=== PATIENT | male | born 1960 | race Asian ===

== ENCOUNTER 2018-09-26 12:33 | Emergency (ER) | payer BC ==
[~2018-09-26] VITALS: Ht 177.8 cm; Wt 77.1 kg
[2018-09-26] VITALS (8 sets, daily range): BP systolic 96–127; BP diastolic 56–80
--- NOTE | 2018-09-26 12:50 | NUR ---
ED Nurse Note: PT WALKED IN TO ER TODAY FROM HOME. AOX4. AT BEDSIDE. PT C/O UPPER RIGHT QUADRANT ABDOMINAL PAIN, 04/05 X 3 DAYS AGO. ABDOMEN IS DISTENDED AND TENDER TO PALPATION IN RIGHT UPPER QUADRANT. HYPOACTIVE BOWEL SOUNDS IN ALL QUADRANTS. PT STATES LAST BM X YESTERDAY WHICH WAS LIQUID. PT ALSO C/O NAUSEA AND VOMITING X YESTERDAY. PT SKIN AND SCLERA JAUNDICED WHICH PT'S STATES SHE NOTICED X YESTERDAY.
[2018-09-26] MEDS ORDERED: Sodium Chloride 500ML 500 ML IV ONE (12:56)
[2018-09-26] MEDS ORDERED: Ipratropium 0.02% Inh Soln 2.5ml UD HHN ONE (13:00)
[2018-09-26] MEDS ORDERED: Isovue-370 150ml vial INJ PRN (13:00)
[2018-09-26] MEDS ORDERED: Albuterol ud Inhalation HHN ONE (13:00)
--- NOTE | 2018-09-26 13:00 | Emergency Room Report ---
History of Present Illness General Chief Complaint: Dyspnea/Respdistress Source: Patient Present Illness HPI Patient presents with complaints of shortness of breath reports onset was earlier today There is a pleuritic component to this Patient reports that he has a history of asthma in the past However has not required medications recently Patient had recent visit to [facility] While there patient developed significant vomiting and diarrhea, that has since resolved, patient had also reported fevers or chills Denies any calf pain or swelling Also reports a fullness sensation in the abdomen Denies any flank pain denies any dysuria frequency denies any drug or alcohol use As the patient's charts of breath has progressively worsened he presents to the ER Upon initial evaluation patient appears tachypneic, jaundice and ill Allergies: Coded Allergies: No Known Allergies (Unverified , 09/26/18) Patient History Past Medical History: see triage record Pertinent Family History: none Reviewed Nursing Documentation: PMH: Agreed; PSxH: Agreed Nursing Documentation-PMH Past Medical History: No Stated History Review of Systems All Other Systems: negative except mentioned in HPI Physical Exam Vital Signs Date Time Temp Pulse Resp B/P (MAP) Pulse Ox O2 Delivery O2 Flow Rate FiO2 09/26/18 12:44 104 20 119/64 93 Room Air Sp02 EP Interpretation: reviewed, normal General Appearance: mild distress - Patient appears short of breath Head: normocephalic, atraumatic Eyes: bilateral eye PERRL, bilateral eye EOMI ENT: hearing grossly normal, normal pharynx, TMs + canals normal, uvula midline Neck: full range of motion, supple, no meningismus, no bony tend Respiratory: no rhonchi, no respiratory distress, no retraction, no accessory muscle use, wheezing - Fine wheezing the right upper lobe mild tachypnea Cardiovascular #1: normal peripheral pulses, no edema, no gallop, no JVD, no murmur, tachycardia Gastrointestinal: normal bowel sounds, non tender, soft, no mass, no organomegaly, non-distended, no guarding, no hernia, no pulsatile mass, no rebound Genitourinary: no CVA tenderness Musculoskeletal: normal inspection Neurologic: oriented x3, 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, 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, motor strength/ tone normal, sensory intact Psychiatric: mood/affect normal Skin: normal color, no rash, warm/dry, palpation normal Lymphatic: normal inspection, no adenopathy Procedures Critical Care Time Critical Care Time 70 minutes for multiple re-evaluations Critical presentation and critical findings requiring multiple consultants, not including any procedural time Medical Decision Making Diagnostic Impression: Primary Impression: Hepatorenal failure Additional Impressions: Respiratory distress Pancytopenia Pleural effusion ER Course Multiple differentials are considered including but not limited to vascular, cardiac, cardiopulmonary, infectious pathology patient's blood work is significantly abnormal including pancytopenia Bandemia Patient's kidney function is elevated Total bilirubin elevated CT imaging shows pleural effusions and hepatomegaly patient has received IV hydration appears to be significantly acidotic Patient is also placed on BiPAP Was seen emergently in the emergency room by medicine, heme oncology They do agree that the patient would benefit from higher level of care at [facility] with multispecialty capacity Initially the patient's reported wanting to leave AGAINST MEDICAL ADVICE to drive the patient to [facility] however we were now reported that there is room availability patient will be able to have transfer After this discussion, I was contacted by Dr. Asher who reported that the transfer center had provided information regarding transfer which will likely happen in the next 90 minutes Given this input patient decided to stay until transport is made After 120 minutes there has been no reports of transfer at this time Patient however did do significantly better on BiPAP And at this time pending further transfer To [facility] for further definitive care Labs Test 09/26/18 13:00 09/26/18 14:15 09/26/18 15:25 09/26/18 15:50 White Blood Count 1.6 K/UL (4.8-10.8) 1.9 K/UL (4.8-10.8) Red Blood Count 2.33 M/UL (4.70-6.10) 2.10 M/UL (4.70-6.10) Hemoglobin 7.1 G/DL (14.2-18.0) 6.5 G/DL (14.2-18.0) Hematocrit 20.7 % (42.0-52.0) 19.0 % (42.0-52.0) Mean Corpuscular Volume 89 FL (80-99) 90 FL (80-99) Mean Corpuscular Hemoglobin 30.5 PG (27.0-31.0) 31.0 PG (27.0-31.0) Mean Corpuscular Hemoglobin Concent 34.3 G/DL (32.0-36.0) 34.3 G/DL (32.0-36.0) Red Cell Distribution Width 12.7 % (11.6-14.8) 13.3 % (11.6-14.8) Platelet Count 20 K/UL (150-450) 18 K/UL (150-450) Mean Platelet Volume 14.4 FL (6.5-10.1) 10.6 FL (6.5-10.1) Neutrophils (%) (Auto) % (45.0-75.0) % (45.0-75.0) Lymphocytes (%) (Auto) % (20.0-45.0) % (20.0-45.0) Monocytes (%) (Auto) % (1.0-10.0) % (1.0-10.0) Eosinophils (%) (Auto) % (0.0-3.0) % (0.0-3.0) Basophils (%) (Auto) % (0.0-2.0) % (0.0-2.0) Differential Total Cells Counted 100 100 Neutrophils % (Manual) 70 % (45-75) 73 % (45-75) Lymphocytes % (Manual) 8 % (20-45) 9 % (20-45) Monocytes % (Manual) 10 % (1-10) 8 % (1-10) Eosinophils % (Manual) 0 % (0-3) 2 % (0-3) Basophils % (Manual) 0 % (0-2) 0 % (0-2) Band Neutrophils 12 % (0-8) 8 % (0-8) Platelet Estimate Decreased Decreased Platelet Morphology Normal Normal Hypochromasia 1+ 4+ Sodium Level 124 MMOL/L (136-145) Potassium Level 4.4 MMOL/L (3.5-5.1) Chloride Level 89 MMOL/L (98-107) Carbon Dioxide Level 17 MMOL/L (21-32) Anion Gap 18 mmol/L (5-15) Blood Urea Nitrogen 79 mg/dL (7-18) Creatinine 2.6 MG/DL (0.55-1.30) Estimat Glomerular Filtration Rate 25.5 mL/min (>60) Glucose Level 100 MG/DL (74-106) Calcium Level 8.1 MG/DL (8.5-10.1) Total Bilirubin 9.6 MG/DL (0.2-1.0) Direct Bilirubin 8.6 MG/DL (0.0-0.3) Aspartate Amino Transf (AST/SGOT) 122 U/L (15-37) Alanine Aminotransferase (ALT/SGPT) 134 U/L (12-78) Alkaline Phosphatase 97 U/L (46-116) Total Creatine Kinase 12 U/L (26-308) Creatine Kinase MB 0.5 NG/ML (0.0-3.6) Creatine Kinase MB Relative Index 4.1 Troponin I 0.000 ng/mL (0.000-0.056) Pro-B-Type Natriuretic Peptide 11517 pg/mL (0-125) Total Protein 5.2 G/DL (6.4-8.2) Albumin 1.7 G/DL (3.4-5.0) Globulin 3.5 g/dL Albumin/Globulin Ratio 0.5 (1.0-2.7) Lipase 162 U/L (73-393) Lactic Acid Level 5.00 mmol/L (0.4-2.0) 5.40 mmol/L (0.66-2.22) Arterial Blood pH 7.359 (7.350-7.450) Arterial Blood Partial Pressure CO2 28.3 mmHg (35.0-45.0) Arterial Blood Partial Pressure O2 82.1 mmHg (75.0-100.0) Arterial Blood HCO3 15.6 mmol/L (22.0-26.0) Arterial Blood Oxygen Saturation 93.7 % (95-100) Arterial Blood Base Excess -9.0 (-2-2) Mayank Test Positive Poikilocytosis 2+ Anisocytosis 2+ Spherocytes 1+ [place] Cells 2+ Reticulocyte Count 0.9 % (0.0-2.0) Lactate Dehydrogenase 517 U/L (81-234) Labs Test 09/26/18 13:00 09/26/18 14:15 09/26/18 15:25 09/26/18 15:50 White Blood Count 1.6 K/UL (4.8-10.8) 1.9 K/UL (4.8-10.8) Red Blood Count 2.33 M/UL (4.70-6.10) 2.10 M/UL (4.70-6.10) Hemoglobin 7.1 G/DL (14.2-18.0) 6.5 G/DL (14.2-18.0) Hematocrit 20.7 % (42.0-52.0) 19.0 % (42.0-52.0) Mean Corpuscular Volume 89 FL (80-99) 90 FL (80-99) Mean Corpuscular Hemoglobin 30.5 PG (27.0-31.0) 31.0 PG (27.0-31.0) Mean Corpuscular Hemoglobin Concent 34.3 G/DL (32.0-36.0) 34.3 G/DL (32.0-36.0) Red Cell Distribution Width 12.7 % (11.6-14.8) 13.3 % (11.6-14.8) Platelet Count 20 K/UL (150-450) 18 K/UL (150-450) Mean Platelet Volume 14.4 FL (6.5-10.1) 10.6 FL (6.5-10.1) Neutrophils (%) (Auto) % (45.0-75.0) % (45.0-75.0) Lymphocytes (%) (Auto) % (20.0-45.0) % (20.0-45.0) Monocytes (%) (Auto) % (1.0-10.0) % (1.0-10.0) Eosinophils (%) (Auto) % (0.0-3.0) % (0.0-3.0) Basophils (%) (Auto) % (0.0-2.0) % (0.0-2.0) Differential Total Cells Counted 100 100 Neutrophils % (Manual) 70 % (45-75) 73 % (45-75) Lymphocytes % (Manual) 8 % (20-45) 9 % (20-45) Monocytes % (Manual) 10 % (1-10) 8 % (1-10) Eosinophils % (Manual) 0 % (0-3) 2 % (0-3) Basophils % (Manual) 0 % (0-2) 0 % (0-2) Band Neutrophils 12 % (0-8) 8 % (0-8) Platelet Estimate Decreased Decreased Platelet Morphology Normal Normal Hypochromasia 1+ 4+ Sodium Level 124 MMOL/L (136-145) Potassium Level 4.4 MMOL/L (3.5-5.1) Chloride Level 89 MMOL/L (98-107) Carbon Dioxide Level 17 MMOL/L (21-32) Anion Gap 18 mmol/L (5-15) Blood Urea Nitrogen 79 mg/dL (7-18) Creatinine 2.6 MG/DL (0.55-1.30) Estimat Glomerular Filtration Rate 25.5 mL/min (>60) Glucose Level 100 MG/DL (74-106) Calcium Level 8.1 MG/DL (8.5-10.1) Total Bilirubin 9.6 MG/DL (0.2-1.0) Direct Bilirubin 8.6 MG/DL (0.0-0.3) Aspartate Amino Transf (AST/SGOT) 122 U/L (15-37) Alanine Aminotransferase (ALT/SGPT) 134 U/L (12-78) Alkaline Phosphatase 97 U/L (46-116) Total Creatine Kinase 12 U/L (26-308) Creatine Kinase MB 0.5 NG/ML (0.0-3.6) Creatine Kinase MB Relative Index 4.1 Troponin I 0.000 ng/mL (0.000-0.056) Pro-B-Type Natriuretic Peptide 69047 pg/mL (0-125) Total Protein 5.2 G/DL (6.4-8.2) Albumin 1.7 G/DL (3.4-5.0) Globulin 3.5 g/dL Albumin/Globulin Ratio 0.5 (1.0-2.7) Lipase 162 U/L (73-393) Lactic Acid Level 5.00 mmol/L (0.4-2.0) 5.40 mmol/L (0.66-2.22) Arterial Blood pH 7.359 (7.350-7.450) Arterial Blood Partial Pressure CO2 28.3 mmHg (35.0-45.0) Arterial Blood Partial Pressure O2 82.1 mmHg (75.0-100.0) Arterial Blood HCO3 15.6 mmol/L (22.0-26.0) Arterial Blood Oxygen Saturation 93.7 % (95-100) Arterial Blood Base Excess -9.0 (-2-2) Mayank Test Positive Poikilocytosis 2+ Anisocytosis 2+ Spherocytes 1+ [place] Cells 2+ Reticulocyte Count 0.9 % (0.0-2.0) Lactate Dehydrogenase 517 U/L (81-234) EKG Diagnostic Results Rate: tachycardiac Rhythm: other ST Segments: no acute changes Rhythm Strip Diag. Results EP Interpretation: yes Rate: 112 Rhythm: no PVC's, no ectopy, other - Sinus tach Chest X-Ray Diagnostic Results Chest X-Ray Diagnostic Results : Chest X-Ray Ordered: Yes # of Views/Limited/Complete: 1 View Indication: Chest Pain EP Interpretation: Yes Interpretation: no consolidation, no effusion, no pneumothorax, other - Right perihilar fullness Impression: Other - Right perihilar full nonspecific Electronically Signed by: Chel Morillo DO CT/MRI/US Diagnostic Results CT/MRI/US Diagnostic Results : Impression cT chest abdomen pelvisIMPRESSION: Abnormal right pulmonary hilum described on recent chest radiograph is probably accounted for by prominent vascular structures. Doubt underlying mass or adenopathy, although impossible to completely exclude in the absence of IV contrast Small right and trace left pleural effusions Low-attenuation blood pool suggesting anemia Limited assessment of the GI tract, due to lack of enteric contrast administration No gross acute abdominal or pelvic abnormality Hepatomegaly Other findings as noted, including calcified vasa deferentia, degenerative spondylosis Last Vital Signs Date Time Temp Pulse Resp B/P (MAP) Pulse Ox O2 Delivery O2 Flow Rate FiO2 09/26/18 12:44 104 20 119/64 93 Room Air Status: improved Disposition: XFER SHT-TRM HOSP Condition: Critical Chel Morillo DO Sep 26, 2018 13:00
[2018-09-26 13:32] LABS: HEMATOCRIT 20.7 % (42.0-52.0); HEMOGLOBIN 7.1 G/DL (14.2-18.0); MEAN CORPUSCULAR VOLUME 89 FL (80-99); PLATELET COUNT 20 K/UL (150-450); RED BLOOD COUNT 2.33 M/UL (4.70-6.10); RED CELL DISTRIBUTION WIDTH 12.7 % (11.6-14.8)
[2018-09-26 13:38] LABS: ANION GAP 18 mmol/L (5-15); BLOOD UREA NITROGEN 79 mg/dL (7-18); CALCIUM 8.1 MG/DL (8.5-10.1); CARBON DIOXIDE 17 MMOL/L (21-32); CHLORIDE 89 MMOL/L (98-107); CREATININE 2.6 MG/DL (0.55-1.30); POTASSIUM 4.4 MMOL/L (3.5-5.1); SODIUM 124 MMOL/L (136-145)
--- NOTE | 2018-09-26 13:42 | Diagnostic Imaging Report ---
Indication: Shortness of breath Technique: One view of the chest Comparison: none Findings: The right pulmonary hilum is quite prominent. The heart is borderline enlarged. No infiltrates, effusions, or congestion. There is some central bronchial wall thickening. Impression: Prominent right pulmonary hilum, could this represent prominent vessels but mass or adenopathy not excludable. Consider CT for further evaluation Borderline cardiomegaly
[2018-09-26 13:44] LABS: WHITE BLOOD COUNT 1.6 K/UL (4.8-10.8)
[2018-09-26 13:56] LABS: ALANINE AMINOTRANSFERASE 134 U/L (12-78); ALBUMIN 1.7 G/DL (3.4-5.0); ALBUMIN/GLOBULIN RATIO 0.5 (1.0-2.7); ALKALINE PHOSPHATASE 97 U/L (46-116); ASPARTATE AMINO TRANSFERASE 122 U/L (15-37); BILIRUBIN,TOTAL 9.6 MG/DL (0.2-1.0); CKMB 0.5 NG/ML (0.0-3.6); CREATINE KINASE 12 U/L (26-308)
[2018-09-26 13:58] LABS: BILIRUBIN,DIRECT 8.6 MG/DL (0.0-0.3)
[2018-09-26] MEDS ORDERED: cefTRIAXone 1 GM in NS 55 ML IVPB ONE (14:00)
--- NOTE | 2018-09-26 15:05 | Diagnostic Imaging Report ---
CLINICAL INDICATION:Shortness of breath. Abdominal pain and fevers and chills, fullness sensation in the abdomen, right upper quadrant abdominal pain for 3 days, tender to palpation in the right upper quadrant TECHNIQUE: No oral contrast, per emergency room physician request Spiral acquisitions obtained through the chest, abdomen, and pelvis. Multiplanar reconstructions were generated. Total dose length product 1471.74 mGycm. CTDIvol(s) 17.89,14.43 mGy. Radiation dose was minimized using automated exposure control COMPARISON: None. Reference made to chest radiograph earlier the same day FINDINGS Chest: There is what appears to be prominent venous and arterial structures in the right pulmonary hilum, probably accounting for the right hilar fullness described on recent chest radiograph. However, underlying adenopathy is difficult to completely exclude. Areas of linear scarring are seen in the bilateral lung apices and in the posterior right upper lobe. Scarring and or atelectasis is seen at both lung bases. There is also bronchial wall thickening, particularly in the bilateral lower lobes. There is a small right pleural effusion. There is trace left pleural fluid. No focal consolidation. No definite congestion The heart is upper limits normal in size. Low attenuation of the blood pool suggesting anemia. There is minimal anterior wall pericardial thickening. No mediastinal or hilar mass or adenopathy. The included thyroid appears unremarkable. Some debris is seen within the esophagus. No axillary or chest wall mass or adenopathy. The bones are unremarkable. Abdomen pelvis: Lack of enteric contrast limits assessment of the GI tract. There are colonic diverticula. The appendix is normal. No small bowel distention. No free or loculated intraperitoneal gas or fluid is evident. The stomach and duodenum are unremarkable. Lack of IV contrast limits assessment of the solid organs. The liver is enlarged. No gross focal abnormality. The gallbladder is contracted. No biliary ductal dilatation. The pancreas, spleen, adrenals, kidneys are unremarkable. No renal or ureteral calculi, hydronephrosis, or hydroureter. No pelvic mass or adenopathy. The bladder is unremarkable. The vasa deferentia are calcified The bones are unremarkable except for degenerative spondylosis changes. IMPRESSION: Abnormal right pulmonary hilum described on recent chest radiograph is probably accounted for by prominent vascular structures. Doubt underlying mass or adenopathy, although impossible to completely exclude in the absence of IV contrast Small right and trace left pleural effusions Low-attenuation blood pool suggesting anemia Limited assessment of the GI tract, due to lack of enteric contrast administration No gross acute abdominal or pelvic abnormality Hepatomegaly Other findings as noted, including calcified vasa deferentia, degenerative spondylosis The CT scanner at [facility] is accredited by the [employer] and the scans are performed using protocols designed to limit radiation exposure to as low as reasonably achievable to attain images of sufficient resolution adequate for diagnostic evaluation.
[2018-09-26] MEDS ORDERED: ZALEPLON10 MG ORAL (15:07)
[2018-09-26] MEDS ORDERED: EPLERENONE25 MG PO (15:07)
[2018-09-26] MEDS ORDERED: BENZONATATE200 MG ORAL (15:07)
[2018-09-26] MEDS ORDERED: ACYCLOVIR400 MG ORAL (15:07)
[2018-09-26] MEDS ORDERED: Levalbuterol Inh UD 1.25mg/0.5ml HHN ONE (15:15)
--- NOTE | 2018-09-26 16:00 | NUR ---
ED Nurse Note: LACTIC REFLEX RESENT.
[2018-09-26 16:11] LABS: MEAN CORPUSCULAR VOLUME 90 FL (80-99); PLATELET COUNT 18 K/UL (150-450); RED CELL DISTRIBUTION WIDTH 13.3 % (11.6-14.8)
[2018-09-26 16:14] LABS: HEMOGLOBIN 6.5 G/DL (14.2-18.0); WHITE BLOOD COUNT 1.9 K/UL (4.8-10.8)
[2018-09-26] MEDS ORDERED: D5NS 1,000 ML IV SCH (16:15)
[2018-09-26] MEDS ORDERED: Acetaminophen 500mg (ES) tab ORAL PRN (16:15)
[2018-09-26] MEDS ORDERED: Piperacillin/Tazobactam 3.375 GM in D5W 110 ML IVPB SCH (16:15)
--- NOTE | 2018-09-26 16:26 | NUR ---
ED Nurse Note: RT AT THE BEDSIDE PLACING BIPAP: 08/02, FIO2 35% Addendum: 09/26/18 at 1629 by COLLETTE ED Nurse Note: RT AT THE BEDSIDE PLACING BIPAP: 10/02, FIO2 35%
--- NOTE | 2018-09-26 16:42 | NUR ---
RESPIRATORY NOTE: Placed pt on Bipap 15/5- back up rate 20- 35% FiO2 per MD Morillo's order, saturates at 100% Pt is alert, awake but SOB RR 27 bpm, tachycardia HR 117 bpm. No redness or skin breakdown noted upon applying the mask. Bipap is plugged into the red outlet, ambu bag is at bedside, alarms anr set and audible. Breathing tx given tiwce before Bipap. Will continue to monitor pt closely.
--- NOTE | 2018-09-26 16:43 | NUR ---
ED Nurse Note: PT AND WOULD LIKE TO TRANSFER CARE TO ANOTHER FACILITY. DR. MORSE AWARE AND AT BEDSIDE DISCUSSING RISKS AND CONSEQUENCES INVOLVED IN LEAVING AT THIS TIME AND THE BENEFITS OF CONTINUED TREATMENT AND HOSPITALIZATION. PT AND STILL WOULD LIKE TO TRANSFER. AMA FORM SIGNED.
--- NOTE | 2018-09-26 16:50 | NUR ---
ED Nurse Note: DR. MORSE IN CONTACT WITH [facility] WHERE THE PT WOULD LIKE TO TRANSFER. PER AT [facility], A BED WILL BE READY FOR THE PT IN 90 MINUTES. PT AGREES TO REMAIN AT [facility]NTIL THEN. WILL CONTINUE TO MONITOR PT. PT REMAINS ON BIPAP AND CARDIAC MONITORING.
--- NOTE | 2018-09-26 17:00 | NUR ---
RESPIRATORY NOTE: Changed BiPap to 17/5 per MD Morillo's order. Pt is stable with the settings, still SOB but pt stated he is feeling better. Will continue to monitor pt closely.
--- NOTE | 2018-09-26 18:30 | NUR ---
ED Nurse Note: ELISABETH CALLED FOR UPDATE. PER ELISABETH, BED STILL NOT READY. 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 WILL CONTINUE TO MONITOR.
--- NOTE | 2018-09-26 18:40 | NUR ---
ED Nurse Note: PT NO LONGER WANTS TO BE ON BIPAP. AWARE. BIPAP REMOVED AND PT PLACED ON 3L O2 VIA NC. RR32 WITH O2 SAT AT 96%.
--- NOTE | 2018-09-26 18:41 | NUR ---
Note theresa in EDM - 09/26/18 at 1843 by COLLETTE ED Nurse Note: PT NO LONGER WANTS TO BE ON BIPAP. AWARE. BIPAP REMOVED AND PT PLACED ON 3L O2 VIA NC. RR40 WITH O2 SAT AT 93%.
--- NOTE | 2018-09-26 19:06 | NUR ---
ED Nurse Note: REPORT GIVEN TO ALEX GONZALEZ.
--- NOTE | 2018-09-26 21:18 | NUR ---
REPORT GIVEN TO ELISABETH DONNELLY RN PATIENT IS TRANSFERD TO ROOM 5815 VIA ACLS PROTOCOL
[2018-09-27] MEDS ORDERED: Pantoprazole Inj IVP SCH (09:00)
--- NOTE | 2018-09-28 01:21 | NUR ---
ED Nurse Note: Preliminary BC result faxed to [facility] [phone].
--- NOTE | 2018-09-28 09:00 | Consultation ---
DATE OF CONSULTATION: 09/26/2018 HEMATOLOGY/ONCOLOGY CONSULTATION: CONSULTING PHYSICIAN: Erasto Diaz M.D. REFERRING PHYSICIAN: Yung Asher M.D. REASON FOR CONSULTATION: Pancytopenia. HISTORY OF PRESENT ILLNESS: The patient has been seen in [facility] on urgent basis called in for severe pancytopenia, renal failure, thrombocytopenia, anemia, leukopenia, and respiratory distress. The patient is an extremely pleasant 57-year-old gentleman who was in excellent state of health. The patient apparently was in [facility] months ago. He developed gastrointestinal infection, subsequently treated by his primary care physician. The patient otherwise has been in excellent state of health. Has been sick since the beginning of August. Just a few days prior to this hospitalization, the patient did undergo evaluation by his primary care physician. He did have cough with fevers and chills, was given [id number] medications including apparent antibiotics as well as antiinflammatories. ____02:49___ the patient presented to [facility] with severe shortness of breath, feeling very dizzy as well. The patient with abdominal distention. Upon evaluation, the patient has been noted to be severely pancytopenic with white count 5.1, platelets of 20, and hemoglobin of 7. The patient has been noted to be in renal failure with a calcium of 2.6. The patient has undergone CT scan of the chest, abdomen, and pelvis without contrast demonstrating evidence of abnormal right pulmonary hilum 03:40 on recent chest radiograph, which probably accounted for the pulmonary vascular structure, doubt underlying mass or adenopathy, although possible to completely exclude in the absence of IV contrast. Abdominal examination, noncontrast CT was negative. PAST MEDICAL HISTORY: Nothing other than hernia. PAST SURGICAL HISTORY: Post hernia surgery. FAMILY HISTORY: The patient ____04:27___ in the family at this point in time. SOCIAL HISTORY: The patient works out quite frequently. Denies any HIV risk factors. He is . ALLERGIES: Per electronic medical records. MEDICATIONS: Per electronic medical records. REVIEW OF SYSTEMS: CONSTITUTIONAL: The patient denies any headaches, vision changes, or hearing loss. PULMONARY: 04:50 shortness of breath and cough. GASTROINTESTINAL: The patient has kind of abdominal distention. The patient has had bowel movements. The patient has been urinating dark urine. SKIN: The patient has a bruising petechiae. The patient does complain of jaundice since Wednesday currently. PHYSICAL EXAMINATION: VITAL SIGNS: Include temperature 98 degrees, pulse of 116, respiratory rate 26, and blood pressure 110/68. HEAD AND NECK: Sclerae icteric. CHEST: Rhonchi bilaterally. CARDIAC: Regular rhythm. S1 and S2. Tachycardic. ABDOMEN: Distended. Tympanic. No rebound or guarding. EXTREMITIES: Trace edema bilateral lower extremities. NEUROLOGICAL: The patient is able to move all extremities. The patient alert and oriented. LABORATORY AND DIAGNOSTIC DATA: Laboratory as well as investigational studies as noted above. The patient has a white count of 1.6, hemoglobin 7.1, and platelet count of 20. Sodium 124, creatinine 2.6, glucose of 100, and calcium of 8.1. Total bilirubin of 9.6, direct bilirubin of 8.6, AST and ALT of 120 and 134. Pro-B natriuretic peptide of 14,301. Albumin of 1.7. ASSESSMENT AND PLAN: 1. Pancytopenia, etiology unclear at this point in time ____06:13___ to be evaluated ____ infectious etiology needs to be ruled out by Infectious Diseases. Consideration of bone marrow biopsy needs to be done. My recommendation would be for the patient to be sent to a tertiary care facility at this point in time. 2. Elevated bilirubin, mostly direct. Underlying liver issues need to be ruled out. 3. Elevated AST and ALT, etiology unclear. Hepatitis panel is to be followed up. 4. Code status. Full Code. 5. Elevated 06:47 2D echo to be done. Lower extremity venous duplex will be done. 6. Renal failure. Etiology unclear. The patient is taking much anti-inflammatories. Nephrology evaluation ___06:59__ hyponatremia and renal failure. Erasto Diaz M.D. DR: KENDALL JOB#: [id number] CC:
== END 2018-09-26 21:34 | disposition short-term general hospital (02) ==
LOC: EMR 13:30 → EDBEDREQSVC 14:00 → EDBEDREQ 14:00 → EMR 21:34
DX: K76.7 Hepatorenal syndrome (principal); R06.03 Acute respiratory distress; D61.818 Other pancytopenia; J90 Pleural effusion, not elsewhere classified; R00.0 Tachycardia, unspecified; M47.9 Spondylosis, unspecified
CPT/HCPCS: 36415; 36600; 71045; 71250; 74176; 80053; 82248; 82550; 82553; 82803; 83010; 83605; 83615; 83690; 83880; 84484; 85007; 85025; 85044; 86850; 86900; 86901; 86920; 87040; 87081; 93005; 94640; 94664; 96361; 96365; 96366; 96367; 96368; 99291; G0480; J0696; J7644; 80329